=== PATIENT | female | born 1965 | race African-American/Black ===

== ENCOUNTER 2020-12-29 01:57 | Emergency (ER) | payer BC ==
[2020-12-29 02:35] LABS: #Eosinphils 0.2 10x3/uL (0.0-0.5); #Monocytes 0.7 10x3/uL (0.0-1.1); #Neutrophils 4.9 10x3/uL (1.5-8.4); %Basophils 0.4 % (0.0-2.0); %Eosinophils 2.4 % (0.0-6.0); %Lymphocytes 41.1 % (18.0-47.0); %Monocytes 7.3 % (0.0-10.0); %Neutrophils 48.4 % (40.0-75.0); Hemoglobin 12.9 g/dL (12.0-15.5); Mean Corpuscular HGB CONC 33.2 g/dL (32.0-36.0); Mean Corpuscular Hemoglobin 28.4 pg (27.0-33.0); Mean Corpuscular Volume 85.7 fl (81.6-98.3); Mean Platelet Volume 10.4 fl (7.4-10.4); Platelet Count 268 10x3/uL (150-450); RBC Distribution Width 13.2 % (11.5-14.5); Red Blood Cell (RBC) Count 4.54 10x6/uL (3.90-5.03); White Blood Cell (WBC) Count 10.2 10x3/uL (3.5-10.5)
[2020-12-29] MEDS ORDERED: Aspirin Chewable 81 MG TAB ONE (02:35)
[2020-12-29] MEDS ORDERED: Nitroglycerin 0.4 MG TAB 1 EACH ONE (02:35)
[2020-12-29] MEDS ORDERED: Cyclobenzaprine 10 MG TAB ONE (02:58)
[2020-12-29 02:59] LABS: ALT (SGPT) 16 U/L (8-55); AST (SGOT) 21 U/L (5-34); Albumin 4.2 g/dL (3.5-5.0); Alkaline Phosphatase 93 U/L (40-110); Anion Gap 16 mmol/L (10-20); BUN (Urea Nitrogen) 12 mg/dL (9.8-20.1); Bilirubin, Total 0.3 mg/dL (0.2-1.2); Calc. Creatinine Clearance 0 mL/min (70-130); Calcium 9.5 mg/dL (7.8-10.44); Carbon Dioxide 24 mmol/L (22-29); Chloride 104 mmol/L (98-107); Globulin 3.9 g/dL (2.4-3.5); Glucose 106 mg/dL (70-105); Potassium 3.8 mmol/L (3.5-5.1); Protein, Total 8.1 g/dL (6.0-8.3); Sodium 140 mmol/L (136-145)
[2020-12-29 04:43] LABS: Troponin I 0.017 ng/mL (< 0.028)
== END 2020-12-29 05:08 | disposition home or self-care (01) ==
LOC: CSHERS 01:57
DX: R07.2 Precordial pain (principal)
CPT/HCPCS: 71045; 80053; 84484; 85025; 93005; 93010

== ENCOUNTER 2024-04-12 07:53 | Outpatient (CLI) | payer OTHER | END 2024-04-12 07:54 | disposition home or self-care (01) | LOC: CSHMAMMO 07:53 | PROVIDERS: ATTEND Physician Assistant | DX: Z12.31 Encounter for screening mammogram for malignant neoplasm of breast (principal) | CPT/HCPCS: 77063; 77067 ==

== ENCOUNTER 2024-05-03 08:35 | Emergency (ER) | payer OTHER ==
[2024-05-03] MEDS ORDERED: Morphine 4 MG/ML VIAL ONE (09:55)
[2024-05-03] MEDS ORDERED: Ondansetron PF 4 MG/2 ML Vial ONE (09:55)
[2024-05-03 10:19] LABS: #Basophils 0.04 10x3/uL (0.0-0.2); #Eosinophils 0.18 10x3/uL (0.0-0.5); #Monocytes 0.58 10x3/uL (0.0-1.1); #Neutrophils 4.48 10x3/uL (1.5-8.4); %Basophils 0.5 % (0.0-2.0); %Eosinophils 2.2 % (0.0-6.0); %Lymphocytes 34.7 % (18.0-47.0); %Monocytes 7.1 % (0.0-10.0); %Neutrophils 55.3 % (40.0-75.0); Hemoglobin 13.1 g/dL (12.0-15.5); Mean Corpuscular HGB CONC 33.6 g/dL (32.0-36.0); Mean Corpuscular Hemoglobin 29.1 pg (27.0-33.0); Mean Corpuscular Volume 86.7 fL (81.6-98.3); Mean Platelet Volume 10.1 fL (7.4-10.4); Platelet Count 270 10x3/uL (150-450); White Blood Cell (WBC) Count 8.1 10x3/uL (3.5-10.5)
[2024-05-03 10:37] LABS: ALT (SGPT) 11 U/L (8-55); AST (SGOT) 18 U/L (5-34); Albumin 3.8 g/dL (3.5-5.0); Alkaline Phosphatase 100 U/L (40-110); Anion Gap 14 mmol/L (10-20); BUN (Urea Nitrogen) 8 mg/dL (9.8-20.1); Bilirubin, Total 0.6 mg/dL (0.2-1.2); CK (CPK) 310 U/L (29-168); Calc. Creatinine Clearance 0 mL/min (70-130); Calcium 9.7 mg/dL (7.8-10.44); Carbon Dioxide 26 mmol/L (22-29); Chloride 102 mmol/L (98-107); Estimated GFR 97; Globulin 4.2 g/dL (2.4-3.5); Glucose 90 mg/dL (70-105); Potassium 3.7 mmol/L (3.5-5.1); Sodium 138 mmol/L (136-145)
[2024-05-03] MEDS ORDERED: Lorazepam 2 MG/ML VIAL ONE (13:44)
[2024-05-03] MEDS ORDERED: chlordiazePOXIDE HCl 25 MG CAP ONE (13:44)
== END 2024-05-03 14:11 | disposition home or self-care (01) ==
LOC: CSHERS 08:35
DX: M62.838 Other muscle spasm (principal); M62.82 Rhabdomyolysis; M79.605 Pain in left leg; I10 Essential (primary) hypertension
CPT/HCPCS: 36415; 74176; 80053; 82550; 83735; 85025; 85379; 96374; 96375; J2060; J2272; J2405